=== PATIENT | female | born 1950 | race Caucasian/White ===

== ENCOUNTER → 2017-03-30 | Outpatient (CLI) | payer BC ==
--- NOTE | 2017-03-31 10:50 | MM ---
Reason for exam: screening (asymptomatic). Last mammogram was performed 2 years ago. History: Patient is postmenopausal and is nulliparous. Physical Findings: A clinical breast exam by your physician is recommended on an annual basis and results should be correlated with mammographic findings. MG Screening Mammo w CAD Bilateral CC and MLO view(s) were taken. Prior study comparison: April 07, 2015, bilateral MG screening mammo w CAD. April 24, 2012, bilateral digital screening mammo w/CAD. The breast tissue is heterogeneously dense. This may lower the sensitivity of mammography. There is no discrete abnormality. No significant changes when compared with prior studies. ASSESSMENT: Negative, BI-RAD 1 RECOMMENDATION: Routine screening mammogram of both breasts in 1 year.
== END | disposition home or self-care (01) ==
LOC: RADMAMWWP 10:04
PROVIDERS: ATTEND Family Medicine
DX: Z12.31 Encounter for screening mammogram for malignant neoplasm of breast (principal)
CPT/HCPCS: 77067

== ENCOUNTER → 2018-04-05 | Outpatient (CLI) | payer MEDICARE ==
--- NOTE | 2018-04-08 14:47 | MM ---
Reason for exam: screening (asymptomatic). Last mammogram was performed 1 year ago. History: Patient is postmenopausal and is nulliparous. MG 3D Screening Mammo W/Cad Bilateral CC and MLO view(s) were taken. Prior study comparison: March 30, 2017, bilateral MG screening mammo w CAD. April 07, 2015, bilateral MG screening mammo w CAD. The breast tissue is heterogeneously dense. This may lower the sensitivity of mammography. No suspicious abnormality. No significant changes when compared with prior studies. ASSESSMENT: Negative, BI-RAD 1 RECOMMENDATION: Routine screening mammogram of both breasts in 1 year.
== END | disposition home or self-care (01) ==
LOC: RADMAMWWP 09:33
PROVIDERS: ATTEND Family Medicine
DX: Z12.31 Encounter for screening mammogram for malignant neoplasm of breast (principal)
CPT/HCPCS: 77063; 77067

== ENCOUNTER 2019-04-01 09:04 | Day surgery (SDC) | payer MEDICARE ==
[~2019-04-01 09:04] MED LIST: LACTATED RINGERS 1,000 ML IV SCH; LIDOCAINE 1% 20 ML VIAL (10MG/ML) FOR IV START INTRADERMA PRN
[2019-04-01 10:07] VITALS: TEMP 97.2
[2019-04-01] MEDS ORDERED: LIDOCAINE 1% INJ 10MG/ML (20 ML MDV) ONE (10:29)
[2019-04-01] MEDS ORDERED: PROPOFOL 10 MG/ML 20 ML VIAL IV ONE (10:29)
--- NOTE | 2019-04-01 10:37 | P.GSHP ---
History of Present Illness H&P Date: 04/01/19 Chief Complaint: Screening colonoscopy This a 68-year-old female who presents today for screening colonoscopy. Patient denies any significant GI complaints. Past Medical History Past Medical History: Hyperlipidemia, Hypertension, Pneumonia Additional Past Medical History / Comment(s): Pneumonia History of Any Multi-Drug Resistant Organisms: MRSA Date of last positivie culture/infection: 2010 MDRO Source:: Right Shoulder Past Surgical History: Appendectomy, Orthopedic Surgery Additional Past Surgical History / Comment(s): ORIF & Right rotator cuff (2011), HARDWARE REMOVAL DUE TO MRSA INFECTION. Past Anesthesia/Blood Transfusion Reactions: Postoperative Nausea & Vomiting (PONV) Past Psychological History: No Psychological Hx Reported Smoking Status: Never smoker Past Alcohol Use History: None Reported Past Drug Use History: None Reported - Past Family History Mother Family Medical History: Myocardial Infarction ([place]) Father Family Medical History: Cancer Additional Family Medical History / Comment(s): Lung CA Medications and Allergies Home Medications Medication Instructions Recorded Confirmed Type Cholecalciferol [Vitamin D3 (25 1 tab PO DAILY 03/25/19 04/01/19 History Mcg = 1000 Iu)] Latanoprost/Pf [Latanoprost 0.005% 1 drop BOTH EYES HS 03/25/19 04/01/19 History Eye Drop] amLODIPine [Norvasc] 5 mg PO QAM 03/25/19 04/01/19 History Allergies Allergy/AdvReac Type Severity Reaction Status Date / Time cephalexin monohydrate Allergy Severe Rash/Hives Verified 04/01/19 10:01 [From Keflex] amoxicillin Allergy Intermediate Rash/Hives Verified 04/01/19 10:01 Penicillins Allergy Intermediate Rash/Hives Verified 04/01/19 10:01 vancomycin Allergy Intermediate Nausea & Verified 04/01/19 10:01 Vomiting Surgical - Exam Vital Signs Temp Pulse Resp BP Pulse Ox 97.2 F L 97 16 171/103 96 04/01/19 09:57 04/01/19 09:57 04/01/19 09:57 04/01/19 09:57 04/01/19 09:57 - General well developed, well nourished, no distress - Eyes PERRL - ENT normal pinna - Neck no masses - Respiratory normal expansion - Cardiovascular Rhythm: regular - Abdomen Abdomen: soft, non tender Assessment and Plan Assessment: We'll perform screening colonoscopy
--- NOTE | 2019-04-01 10:59 | P.OP ---
Date of Procedure: 04/01/19 Preoperative Diagnosis: Screening colonoscopy Postoperative Diagnosis: Mild diverticulosis Procedure(s) Performed: Screening colonoscopy Anesthesia: MAC Surgeon: Michael Ruelas Pathology: none sent Condition: stable Disposition: PACU Description of Procedure: The patient's placed on the endoscopy table in the lateral position. She received IV sedation. Digital rectal exam was performed which revealed no abnormalities. The flexible colonoscope was then placed patient anus passed throughout the entire colon. The ileocecal valve was visualized. The cecum, ascending and transverse colon appeared normal. In the descending; was mild diverticular changes. Scope was then brought back the rectum and this appeared normal. Scope was withdrawn for patient.
[2019-04-01 11:08] VITALS: BP 154/87; PULSE 72; RESP 17
== END 2019-04-01 11:44 | disposition home or self-care (01) ==
LOC: ORWHC2ENDO 09:04
PROVIDERS: ATTEND Surgery
DX: Z12.11 Encounter for screening for malignant neoplasm of colon (principal); K57.30 Diverticulosis of large intestine without perforation or abscess without bleeding; I10 Essential (primary) hypertension; E78.5 Hyperlipidemia, unspecified; Z87.01 Personal history of pneumonia (recurrent); Z86.14 Personal history of Methicillin resistant Staphylococcus aureus infection; Z90.49 Acquired absence of other specified parts of digestive tract; Z98.890 Other specified postprocedural states; Z82.49 Family history of ischemic heart disease and other diseases of the circulatory system; Z80.1 Family history of malignant neoplasm of trachea, bronchus and lung; Z79.899 Other long term (current) drug therapy; Z88.0 Allergy status to penicillin; Z88.1 Allergy status to other antibiotic agents
CPT/HCPCS: J2001; J2704; G0121

== ENCOUNTER → 2019-04-18 | Outpatient (CLI) | payer MEDICARE ==
--- NOTE | 2019-04-18 09:53 | BD ---
EXAMINATION TYPE: Axial Bone Density DATE OF EXAM: 04/18/2019 COMPARISON: 04.02.2007 CLINICAL HISTORY: 68 YR OLD FEMALE....ICD-10 CODE: Z78.0 POST MENOPAUSAL Height: 61 Weight: 160 FRAX RISK QUESTIONS: NOTHING TO NOTE HERE RISK FACTORS HISTORY OF: Active: YES Postmenopausal woman: YES, AT 52 YRS OLD Lost more than 2 inches in height since high school: YES Hyperparathyroidism: NO Adrenal Insufficiency: NO MEDICATIONS: Additional Medications: BP MEDS, VIT D, Additional History: HYPERTENSION EXAM MEASUREMENTS: Bone mineral densitometry was performed using the [email or web address] System. Bone mineral density as measured about the Lumbar spine is: ----- L1-L4(G/cm2): 1.032 T Score Values are as follows: ----- L1: -1.9 ----- L2: -1.1 ----- L3: -1.2 ----- L4: -1.1 ----- L1-L4: -1.2 Bone mineral density has: Decreased -5.0% since study of: 04.02.2007 Bone mineral density about the R hip (g/cm2): 0.800 Bone mineral density about the L hip (g/cm2): 0.790 T Score values are as follows: -----R Neck: -2.1 -----L Neck: -2.2 -----R Total: -1.6 -----L Total: -1.7 Bone mineral density FIRST DEXA SCAN OF HER HIPS..... FRAX%s: THERE IS A 11.6% CHANCE FOR A MAJOR OSTEOPOROTIC FX AND A 2.1% FOR HIP....PROBABILITY FOR F X IN 10 YRS TIME IMPRESSION: Osteopenia (T Score between -2.5 and -1). There is slightly increased risk of fracture and the patient may be considered for treatment. Re-Screen 2-5 years. NOTE: T-SCORE=SD OF THE YOUNG ADULT MEAN.
--- NOTE | 2019-04-19 11:17 | MM ---
Reason for exam: screening (asymptomatic). Last mammogram was performed 1 year ago. History: Patient is postmenopausal and is nulliparous. Physical Findings: A clinical breast exam by your physician is recommended on an annual basis and results should be correlated with mammographic findings. MG 3D Screening Mammo W/Cad Bilateral CC and MLO view(s) were taken. Prior study comparison: April 05, 2018, bilateral MG 3d screening mammo w/cad. March 30, 2017, bilateral MG screening mammo w CAD. There are scattered fibroglandular densities. There is no discrete abnormality. ASSESSMENT: Negative, BI-RAD 1 RECOMMENDATION: Routine screening mammogram of both breasts in 1 year.
== END | disposition home or self-care (01) ==
LOC: RADMAMWWP 07:44
PROVIDERS: ATTEND Family Medicine
DX: Z12.31 Encounter for screening mammogram for malignant neoplasm of breast (principal); M85.80 Other specified disorders of bone density and structure, unspecified site; Z78.0 Asymptomatic menopausal state
CPT/HCPCS: 77063; 77067; 77080

== ENCOUNTER 2019-05-29 13:19 | Day surgery (SDC) | payer MEDICARE ==
[2019-05-24 16:14] VITALS: BMI 20.9
[~2019-05-29 13:19] MED LIST changes: +DEXAMETHASONE SOD PHOSPHATE 10 MG/ML 1 ML VIAL IV ONE; +HYDROmorphone 0.5 MG/0.5 ML SYRINGE IVP PRN; +LIDOCAINE 1% (10MG/ML) FOR IV START INTRADERMA PRN; -LIDOCAINE 1% 20 ML VIAL (10MG/ML) FOR IV START INTRADERMA PRN; +MIDAZOLAM 2 MG/2 ML VIAL IV PRN; +ONDANSETRON 4 MG/2 ML VIAL IVP ONE; +Pre Op ABX Message 1 EACH MISC MISCELLANE ONE; +fentaNYL (PF) 50 MCG/ML 2 ML AMP IVP PRN
[2019-05-29] MEDS ORDERED: PROPOFOL 10 MG/ML 20 ML VIAL IV ONE (14:30)
[2019-05-29] MEDS ORDERED: fentaNYL (PF) 50 MCG/ML 2 ML AMP ONE (14:30)
[2019-05-29] MEDS ORDERED: CLINDAMYCIN 150 MG/ML 4 ML VIAL ONE (14:30)
[2019-05-29] MEDS ORDERED: MIDAZOLAM 2 MG/2 ML VIAL ONE (14:30)
[2019-05-29] MEDS ORDERED: LIDOCAINE 1% INJ 10MG/ML (20 ML MDV) ONE (14:30)
[2019-05-29] MEDS ORDERED: PHENYLEPHRINE-0.9% NACL SYG 1 MG/10 ML SYRINGE ONE (14:30)
[2019-05-29] MEDS ORDERED: BUPIVACAINE (PF) 0.25% 30 ML VIAL MISCELLANE ONE (15:12)
[2019-05-29 15:56] VITALS: TEMP 98.6
--- NOTE | 2019-05-29 15:59 | P.OP ---
Date of Procedure: 05/29/19 Preoperative Diagnosis: Hallux abductovalgus deformity left foot Postoperative Diagnosis: Same Procedure(s) Performed: Marco A Leon bunionectomy left foot Anesthesia: GETA Surgeon: Leo Jesus Estimated Blood Loss (ml): 2 Operative Findings: Unremarkable Description of Procedure: On the date of surgery the patient was taken to the operating room in good condition placed on the operating table supine position where an IV was started. General anesthetic and administered to the patient and the patient's left foot and ankle were prepped and draped in the usual aseptic manner over heavy web roll padding an ankle tourniquet was placed above the malleoli of the patient's left ankle At this point in time attention was directed the patient's left ankle the patient's left foot and ankle were elevated and exsanguinated of blood and after approximately 2 minutes. A time the ankle tourniquet to the patient's left ankle was inflated to approximately 250 mmHg. At this point in time attention was directed to the dorsal aspect of the first metatarsal phalangeal joint where an approximately 6-1/2 cm dorsal linear incision was made the incision was deepened via sharp dissection down through the level of the subcutaneous tissue layers all neurovascular structures encountered were identified isolated and were retracted and any bleeding vessels were clamped electrocauterized dissection was carried deep down to level PERIOSTEAL STRUCTURES OVERLYING THE FIRST METATARSAL PHALANGEAL JOINT THESE WERE INCISED UTILIZING AN INVERTED L INCISION AND UNDERSCORED AND RETRACTED FROM THE UNDERLYING BONE HYPEROSTOSIS PRESENT ON THE MEDIAL SIDE OF THE FIRST METATARSAL HEAD WAS THEN RESECTED FLUSH IN LINE WITH THE SHAFT OF THE FIRST METATARSAL AND REMOVED IN TOTAL FROM THE SURGICAL SITE. THE OSCILLATING BONE SAW WAS THEN USED TO CREATE A TRANSVERSE V OSTEOTOMY AT THE METAPHYSIS LEVEL OF THE METATARSAL UPON COMPLETION OF THIS THRO UGH AND THROUGH V OSTEOTOMY THE CAPITAL FRAGMENT WAS DISPLACED LATERALLY BY APPROXIMATELY 5 MM AND IMPACTED BACK UPON THE SPIKE CREATED BY THE V THE ANGLE OF THE V WAS APPROXIMATELY 60. THE OSTEOTOMY WAS THEN FIXATED WITH 2 CROSSING 0.062 K WIRES AREA ATTENTION WAS THEN DIRECTED to the distal aspect of the incision where dissection was carried deep down to level PERIOSTEAL STRUCTURES OVERLYING THE PROXIMAL PHALANX THESE WERE INCISED IN LINE WITH THE ORIGINAL SKIN INCISION AND UNDERSCORED AND RETRACTED FROM THE UNDERLYING BONE A WEDGE OSTEOTOMY WAS THEN PERFORMED AND A DORSAL TO PLANTAR MANNER WITH THE APEX OF THE WEDGE BEING DIRECTED LATERALLY THE BASE OF THE WEDGE was placed medially the encompass wedge of bone was then removed from the surgical site to surgical drill holes were then fashioned on either side of the osteotomy in such a manner that they met within. Utilizing double strength 8-gauge wire the osteotomy was fixated and anatomically closed in opposed position. This point in time attention was directed to the medial side of the incision where redundant capsule was resected on the medial side of the first metatarsal phalangeal joint and removed removed in total from the surgical site. Hallux was seen to maintain a rectus position and retracted and normal dorsal to plantar manner. Parosteal Structures Then Coaptated and Maintained Utilizing 2- 0 Vicryl Simple Interrupted Suture Subcutaneous Tissues Were Then Coaptated and Maintained Utilizing 3-0 Vicryl Simple Opted Suture Can Was Closed Utilizing 4-0 Nylon Simple Interrupted Suture Your to Applying a Dressing Nail Block Was Administered Using 15 ML of 0.25% Plain Marcaine Adaptic Kerlix Fluffs Four-Inch Conformer and 4 Inch Coban Was Used To Form a Compression Dressing and the Ankle Tourniquet to the Left Ankle Was Deflated Adequate Hemostatic Return Was Seen in All Digits of the Patient's Left Foot and in Particular the Left Hallux. Patient Tolerated the Surgery and Anesthesia Well Was Taken to the Recovery Room in Good Postoperative Condition
[2019-05-29 16:38] VITALS: BP 117/81; PULSE 81; RESP 18
== END 2019-05-29 17:01 | disposition home or self-care (01) ==
LOC: OR 13:19
PROVIDERS: ATTEND Podiatrist Foot & Ankle Surgery
DX: M20.12 Hallux valgus (acquired), left foot (principal); I10 Essential (primary) hypertension; E78.5 Hyperlipidemia, unspecified; Z88.0 Allergy status to penicillin; Z88.1 Allergy status to other antibiotic agents; Z79.899 Other long term (current) drug therapy; Z90.49 Acquired absence of other specified parts of digestive tract; Z98.890 Other specified postprocedural states
CPT/HCPCS: 88304; 88311; 28299; J2250; J1100; J2405; J2001; J3010; J2370; J2704

== ENCOUNTER → 2020-05-20 | Outpatient (CLI) | payer MEDICARE ==
--- NOTE | 2020-05-21 14:41 | MM ---
Reason for exam: screening (asymptomatic). Last mammogram was performed 1 year and 1 month ago. History: Patient is postmenopausal and is nulliparous. Physical Findings: A clinical breast exam by your physician is recommended on an annual basis and results should be correlated with mammographic findings. MG 3D Screening Mammo W/Cad Bilateral CC and MLO view(s) were taken. Prior study comparison: April 18, 2019, bilateral MG 3d screening mammo w/cad. April 05, 2018, bilateral MG 3d screening mammo w/cad. There are scattered fibroglandular densities. No significant changes when compared with prior studies. ASSESSMENT: Negative, BI-RAD 1 RECOMMENDATION: Routine screening mammogram of both breasts in 1 year.
== END | disposition home or self-care (01) ==
LOC: RADMAMWWP 07:20
PROVIDERS: ATTEND Family Medicine
DX: Z12.31 Encounter for screening mammogram for malignant neoplasm of breast (principal)
CPT/HCPCS: 77063; 77067

== ENCOUNTER 2021-02-03 10:56 | Emergency (ER) | payer MEDICARE ==
[2021-02-03 11:16] VITALS: RESP 18; TEMP 97.8
[2021-02-03] MEDS ORDERED: METOCLOPRAMIDE 5 MG/ML 2 ML VIAL IVP STA (12:29)
[2021-02-03] MEDS ORDERED: MECLIZINE 12.5 MG TAB PO STA (12:29)
[2021-02-03] MEDS ORDERED: SODIUM CHLORIDE 0.9% 1,000 ML IV STA (12:32)
--- NOTE | 2021-02-03 12:32 | ED ---
General Adult HPI - General Chief complaint: Dizziness Stated complaint: dizzy, nauseated Time Seen by Provider: 02/03/21 12:19 Source: patient Mode of arrival: ambulatory Limitations: no limitations - History of Present Illness Initial comments: Dictation was produced using [employer] dictation software. please excuse any grammatical, word or spelling errors. Chief Complaint: 70-year-old female presents to the emergency department for episodic vertigo History of Present Illness: This 70-year-old female she presents to the emergency department for vertigo. She's had multiple episodes since yesterday. First episode happened while she was rolling around in bed she states she turned a certain way and the room started spinning vigorously. She laid down for several seconds and her symptoms improved yesterday she was able to function. She went to bed last night and woke up this morning had more episodes. Symptoms of vertigo are accompanied by nausea and vomiting. Patient is never diagnosed with vertigo in the past. Denies any headache. No shortness of breath. No numbness and paresthesias to the arms or legs. Her symptoms are especially worse when lying flat and turning. The ROS documented in this emergency department record has been reviewed and confirmed by me. Those systems with pertinent positive or negative responses have been documented in the HPI. All other systems are other negative and/or noncontributory. PHYSICAL EXAM: General Impression: Alert and oriented x3, not in acute distress HEENT: Normocephalic atraumatic, extra-ocular movements intact, pupils equal and reactive to light bilaterally, mucous membranes moist. Cardiovascular: Heart regular rate and rhythm Chest: Able to complete full sentences, no retractions, no tachypnea Abdomen: abdomen soft, non-tender, non-distended, no organomegaly Musculoskeletal: Pulses present and equal in all extremities, no peripheral edema Motor: no focal deficits noted Neurological: CN II-XII grossly intact, no focal motor or sensory deficits noted, nystagmus is reproduced with positional changing from sitting to laying down with the right lateral decubitus Skin: Intact with no visualized rashes Psych: Normal affect and mood ED course: 70-year-old female clinical presentation with benign paroxysmal positional vertigo. Vital signs upon arrival shows heart rate of 114, rest of vital signs within acceptable limits. EKG interpretation: Ventricular rate 100, normal sinus rhythm,. Interval 172, QRS 78, QTc 451. No NH prolongation, no QTC prolongation, no ST or T-wave changes noted. Overall, this EKG is unremarkable Laboratory evaluation obtained. Mild leukocytosis secondary to stress. CBC is unremarkable otherwise. Metabolic panel is negative. Patient given IV fluids, Antivert and Reglan. She is reevaluated at the bedside at 1:50 PM. Patient states she feels significantly better. She is an Le with minimal com plications. Patient put back in position of right lateral decubitus. States that she did notice some dizziness. Brent maneuvers were performed with almost complete resolution of her symptoms. Patient counseled on the difference between benign positional vertigo and stroke. Return precautions discussed. Patient given prescription for - Related Data Home Medications Medication Instructions Recorded Confirmed Cholecalciferol [Vitamin D3 (25 1 tab PO DAILY 03/25/19 05/29/19 Mcg = 1000 Iu)] Latanoprost/Pf [Latanoprost 0.005% 1 drop BOTH EYES HS 03/25/19 05/29/19 Eye Drop] Calcium Carbonate [Calcium] 600 mg PO DAILY 05/24/19 05/29/19 amLODIPine [Norvasc] 10 mg PO QAM 05/24/19 05/29/19 Previous Rx's Medication Instructions Recorded Meclizine [Antivert] 25 mg PO TID PRN #15 tab 02/03/21 Allergies Allergy/AdvReac Type Severity Reaction Status Date / Time cephalexin monohydrate Allergy Severe Rash/Hives Verified 02/03/21 11:16 [From Keflex] amoxicillin Allergy Intermediate Rash/Hives Verified 02/03/21 11:16 Penicillins Allergy Intermediate Rash/Hives Verified 02/03/21 11:16 vancomycin Allergy Intermediate Nausea & Verified 02/03/21 11:16 Vomiting Review of Systems ROS Statement: Those systems with pertinent positive or pertinent negative responses have been documented in the HPI. ROS Other: All systems not noted in ROS Statement are negative. Past Medical History Past Medical History: Hyperlipidemia, Pneumonia Additional Past Medical History / Comment(s): Pneumonia History of Any Multi-Drug Resistant Organisms: MRSA Date of last positivie culture/infection: 2010 MDRO Source:: Right Shoulder Past Surgical History: Appendectomy, Joint Replacement Additional Past Surgical History / Comment(s): right rotator cuff (2010) Past Anesthesia/Blood Transfusion Reactions: No Reported Reaction Past Psychological History: No Psychological Hx Reported Past Alcohol Use History: None Reported Past Drug Use History: None Reported - Past Family History Mother Family Medical History: Myocardial Infarction ([place]) Father Family Medical History: Cancer Additional Family Medical History / Comment(s): Lung CA General Exam Limitations: no limitations Course Vital Signs 02/03/21 11:11 Temperature 97.8 F Pulse Rate 114 H Respiratory 18 Rate Blood Pressure 157/99 O2 Sat by Pulse 96 Oximetry Medical Decision Making - Lab Data Result diagrams: 02/03/21 12:40 02/03/21 12:40 Lab Results 02/03/21 02/03/21 Range/Units 12:40 12:40 WBC 11.3 H (3.8-10.6) k/uL RBC 5.21 (3.80-5.40) m/uL Hgb 15.8 (11.4-16.0) gm/dL Hct 46.8 H (34.0-46.0) % MCV 89.9 (80.0-100.0) fL MCH 30.4 (25.0-35.0) pg MCHC 33.8 (31.0-37.0) g/dL RDW 12.4 (11.5-15.5) % Plt Count 288 (150-450) k/uL MPV 8.1 Neutrophils % 78 % Lymphocytes % 18 % Monocytes % 3 % Eosinophils % 0 % Basophils % 0 % Neutrophils # 8.8 H (1.3-7.7) k/uL Lymphocytes # 2.0 (1.0-4.8) k/uL Monocytes # 0.3 (0-1.0) k/uL Eosinophils # 0.0 (0-0.7) k/uL Basophils # 0.0 (0-0.2) k/uL Sodium 136 L (137-145) mmol/L Potassium 4.4 (3.5-5.1) mmol/L Chloride 104 (98-107) mmol/L Carbon Dioxide 21 L (22-30) mmol/L Anion Gap 11 mmol/L BUN 16 (7-17) mg/dL Creatinine 0.59 (0.52-1.04) mg/dL Est GFR (CKD-EPI)AfAm >90 (>60 ml/min/1.73 sqM) Est GFR (CKD-EPI)NonAf >90 (>60 ml/min/1.73 sqM) Glucose 115 H (74-99) mg/dL Calcium 10.1 (8.4-10.2) mg/dL Disposition Clinical Impression: BPPV (benign paroxysmal positional vertigo) Disposition: HOME SELF-CARE Condition: Good Instructions (If sedation given, give patient instructions): Benign Paroxysmal Positional Vertigo (ED) Prescriptions: Meclizine [Antivert] 25 mg PO TID PRN #15 tab PRN Reason: dizziness Is patient prescribed a controlled substance at d/c from ED?: No Referrals: Maxim Fenton DO [Primary Care Provider] - 1-2 days
[2021-02-03 13:13] LABS: African American GFR (CKD) >90 (>60 ml/min/1.73 sqM); Anion Gap 11 mmol/L; Basophils % (A) 0 %; Blood Urea Nitrogen 16 mg/dL (7-17); Calcium 10.1 mg/dL (8.4-10.2); Carbon Dioxide 21 mmol/L (22-30); Chloride 104 mmol/L (98-107); Eosinophils % (A) 0 %; Glucose 115 mg/dL (74-99); HCT 46.8 % (34.0-46.0); HGB 15.8 gm/dL (11.4-16.0); Lymphocytes % (A) 18 %; MCH 30.4 pg (25.0-35.0); MCHC 33.8 g/dL (31.0-37.0); MCV 89.9 fL (80.0-100.0); Mean Platelet Volume 8.1; Monocytes # (A) 0.3 k/uL (0-1.0); Monocytes % (A) 3 %; Neutrophils # (A) 8.8 k/uL (1.3-7.7); Neutrophils % (A) 78 %; Non-African American GFR(CKD) >90 (>60 ml/min/1.73 sqM); Platelet Count 288 k/uL (150-450); Potassium 4.4 mmol/L (3.5-5.1); RBC 5.21 m/uL (3.80-5.40); RDW 12.4 % (11.5-15.5); Sodium 136 mmol/L (137-145); WBC 11.3 k/uL (3.8-10.6)
[2021-02-03 14:18] VITALS: BP 151/92; PULSE 88
== END 2021-02-03 14:23 | disposition home or self-care (01) ==
LOC: EC 10:56
DX: H81.10 Benign paroxysmal vertigo, unspecified ear (principal); Z88.0 Allergy status to penicillin; Z88.1 Allergy status to other antibiotic agents
CPT/HCPCS: 36415; 93005; 80048; 85025; 99284; 96374; 96361; J2765

== ENCOUNTER → 2021-05-21 | Outpatient (CLI) | payer MEDICARE ==
--- NOTE | 2021-05-25 11:01 | MM ---
Reason for exam: screening (asymptomatic). Last mammogram was performed 1 year ago. History: Patient is postmenopausal and is nulliparous. Physical Findings: A clinical breast exam by your physician is recommended on an annual basis and results should be correlated with mammographic findings. MG 3D Screening Mammo W/Cad Bilateral CC and MLO view(s) were taken. Prior study comparison: May 20, 2020, bilateral MG 3d screening mammo w/cad. April 18, 2019, bilateral MG 3d screening mammo w/cad. There are scattered fibroglandular densities. Post surgical changes right breast. No significant changes when compared with prior studies. ASSESSMENT: Benign, BI-RAD 2 RECOMMENDATION: Routine screening mammogram of both breasts in 1 year.
== END | disposition home or self-care (01) ==
LOC: RADMAMWWP 07:06
PROVIDERS: ATTEND Family Medicine
DX: Z12.31 Encounter for screening mammogram for malignant neoplasm of breast (principal)
CPT/HCPCS: 77063; 77067

== ENCOUNTER → 2023-05-24 | Outpatient (CLI) | payer MEDICARE ==
--- NOTE | 2023-05-25 19:37 | MM ---
Reason for Exam: Screening (asymptomatic). Last screening mammogram was performed 12 month(s) ago. Patient History: Menarche at age 15. Patient has no children. Left ovary removed at age 39. Postmenopausal. Risk Values: Allegra 5 year model risk: 1.9%. NCI Lifetime model risk: 5.6%. Prior Study Comparison: 05/20/2020 Bilateral Screening Mammogram, [facility]. 05/21/2021 Bilateral Screening Mammogram, [facility]. 05/23/2022 Bilateral MG 3D screening mammo w/cad, [facility]. Tissue Density: There are scattered fibroglandular densities. Findings: Analyzed By CAD. There is no suspicious group of microcalcifications or new suspicious mass in either breast. Overall Assessment: Negative, BI-RAD 1 Management: Screening Mammogram of both breasts in 1 year. . Patient should continue monthly self-breast exams. A clinical breast exam by your physician is recommended on an annual basis. This exam should not preclude additional follow-up of suspicious palpable abnormalities. Note on Allegra scores and lifetime risk: 1. A Allegra score greater than 3% is considered moderate risk. If this is the case, consider specialist referral to assess eligibility for a risk reducing agent. 2. If overall lifetime risk for the development of breast cancer is 20% or higher, the patient may qualify for future screening with alternating mammogram and breast MRI. Electronically signed and approved by: Iván Boucher M.D. Radiologist
== END | disposition home or self-care (01) ==
LOC: RADMAMWWP 09:15
PROVIDERS: ATTEND Family Medicine
DX: Z12.31 Encounter for screening mammogram for malignant neoplasm of breast (principal); Z78.0 Asymptomatic menopausal state
CPT/HCPCS: 77063; 77067

== ENCOUNTER → 2024-08-07 | Outpatient (CLI) | payer MEDICARE ==
--- NOTE | 2024-08-07 07:37 | MM ---
Reason for Exam: Screening (asymptomatic). Last mammogram was performed 1 year(s) and 3 month(s) ago. Patient History: Menarche at age 15. Patient has no children. Left ovary removed at age 39. Postmenopausal. Risk Values: Allegra 5 year model risk: 1.9%. NCI Lifetime model risk: 5.4%. Prior Study Comparison: 05/21/2021 Bilateral Screening Mammogram, [facility]. 05/23/2022 Bilateral MG 3D screening mammo w/cad, [facility]. 05/24/2023 Bilateral MG 3D screening mammo w/cad, [facility]. Tissue Density: There are scattered areas of fibroglandular density. Findings: Analyzed By CAD. Benign-appearing Bilateral axillary nodes are redemonstrated. There is no suspicious group of microcalcifications or new suspicious mass in either breast. Overall Assessment: Negative, BI-RAD 1 Management: Screening Mammogram of both breasts in 1 year. . Patient should continue monthly self-breast exams. A clinical breast exam by your physician is recommended on an annual basis. This exam should not preclude additional follow-up of suspicious palpable abnormalities. Note on Allegra scores and lifetime risk: 1. A Allegra score greater than 3% is considered moderate risk. If this is the case, consider specialist referral to assess eligibility for a risk reducing agent. 2. If overall lifetime risk for the development of breast cancer is 20% or higher, the patient may qualify for future screening with alternating mammogram and breast MRI. [facility], , 08/07/2024 7:34 AM. Electronically signed and approved by: Eder Brewer M.D.
--- NOTE | 2024-08-07 07:54 | BD ---
EXAMINATION TYPE: Axial Bone Density DATE OF EXAM: 08/07/2024 CLINICAL HISTORY: 73 years old Female. ICD-10 CODE: M85.9 , Additional History: Height: 60.5 in Weight: 178 lbs FRAX RISK QUESTIONS: Secondary Osteoporosis: 3. Menopause before 45: yes age 32 pt states no fractures, but in previous bone density it said humerus fx. EXAM MEASUREMENTS: Bone mineral densitometry was performed using the [employer] System. Bone mineral density as measured about the Lumbar spine is: ----- L1-L4(G/cm2): 0.999 T Score Values are as follows: ----- L1: -2.4 ----- L2: -1.9 ----- L3: -1.3 ----- L4: -0.9 ----- L1-L4: -1.5 Z Score Values are as follows: ----- L1: -1.2 ----- L2: -0.8 ----- L3: -0.2 ----- L4: 0.3 ----- L1-L4: -0.3 Bone mineral density has: Decreased -0.7% since study of: 05/23/2022 Bone mineral density about the R hip (g/cm2): 0.750 Bone mineral density about the L hip (g/cm2): 0.796 T Score values are as follows: -----R Neck: -2.5 -----L Neck: -2.4 -----R Total: -2.0 -----L Total: -1.7 Z Score values are as follows: -----R Neck: -1.1 -----L Neck: -1.0 -----R Total: -0.9 -----L Total: -0.5 Bone mineral density has: Decreased -5.7% since study of: 05/23/2022 FRAX%s: The graph provided illustrates a 22.3% chance for a major osteoporotic fx and a 5.8% chance f or the hips probability for fx in 10 years time. IMPRESSION: Osteopenia (T Score between -2.5 and -1) remains present. There is slightly increased risk of fracture and the patient may be considered for treatment. Re-Screen 2-5 years. NOTE: T-SCORE=SD OF THE YOUNG ADULT MEAN. [facility], , 08/07/2024 7:51 AM
== END | disposition home or self-care (01) ==
LOC: RADMAMWWP 06:54
PROVIDERS: ATTEND Family Medicine
DX: Z12.31 Encounter for screening mammogram for malignant neoplasm of breast (principal); R92.323 Mammographic fibroglandular density, bilateral breasts; M85.89 Other specified disorders of bone density and structure, multiple sites; M81.0 Age-related osteoporosis without current pathological fracture; Z78.0 Asymptomatic menopausal state
CPT/HCPCS: 77063; 77067; 77080